=== PATIENT | male | born 1960 | race Caucasian/White ===

== ENCOUNTER 2020-09-22 08:01 | Outpatient (REF) | payer SELFPAY | END 2020-09-22 08:02 | disposition home or self-care (01) | LOC: HO.HAP 08:01 | PROVIDERS: PCP Internal Medicine; Referring Provider Internal Medicine; Visit Provider Internal Medicine | DX: Z13.89 Encounter for screening for other disorder (principal) | CPT/HCPCS: 92700 ==

== ENCOUNTER 2020-12-03 08:24 | Outpatient (REF) | payer SELFPAY | END 2020-12-03 08:25 | disposition home or self-care (01) | LOC: HO.HAP 08:24 | PROVIDERS: Visit Provider Internal Medicine | DX: Z46.1 Encounter for fitting and adjustment of hearing aid (principal); H90.3 Sensorineural hearing loss, bilateral | CPT/HCPCS: V5264 ==

== ENCOUNTER 2021-02-15 09:48 | Outpatient (REF) | payer OTHER, SELFPAY ==
--- NOTE | ~2021-02-15 | US_ITS ---
EXAMINATION: US RETROPERITONEAL LIMITED (RENAL ONLY) CLINICAL INFORMATION: Hypertension. COMPARISON: None TECHNIQUE: Real-time imaging of the kidneys. FINDINGS: RIGHT KIDNEY: 10.1 x 5.7 x 6.0 cm (SAG x AP x TRV). The kidney is normal in size, contour, and echogenicity. Renal cortical thickness is normal. Mild fullness of the renal pyramids without overt hydronephrosis. No renal calculi. LEFT KIDNEY: 10.5 x 5.6 x 5.2 cm (SAG x AP x TRV). The kidney is normal in size, contour, and echogenicity. Renal cortical thickness is normal. Mild fullness of the renal pyramids without overt hydronephrosis. No renal calculi. 1.4 cm lower pole cyst. US/US renal BI IMPRESSION: Mild fullness within the bilateral renal pyramids without overt hydronephrosis. No renal calculi appreciated. Clinical correlation recommended. Further evaluation can be obtained with ct urogram if clinically indicated.
== END 2021-02-15 09:49 | disposition home or self-care (01) ==
LOC: HO.US 09:48
PROVIDERS: PCP Internal Medicine; Visit Provider Internal Medicine Nephrology
DX: I10 Essential (primary) hypertension (principal)
CPT/HCPCS: 76775

== ENCOUNTER 2022-07-26 10:16 | Outpatient (REF) | payer OTHER, SELFPAY | END 2022-07-26 10:17 | disposition home or self-care (01) | LOC: HO.HAP 10:16 | PROVIDERS: Visit Provider Internal Medicine | DX: Z13.89 Encounter for screening for other disorder (principal) ==

== ENCOUNTER 2022-07-27 14:29 | Outpatient (REF) | payer OTHER, SELFPAY | END 2022-07-27 14:30 | disposition home or self-care (01) | LOC: HO.HAP 14:29 | PROVIDERS: Visit Provider Internal Medicine | DX: Z13.89 Encounter for screening for other disorder (principal) ==

== ENCOUNTER 2022-11-27 10:27 | Outpatient (REF) | payer OTHER, SELFPAY | END 2022-11-27 10:28 | disposition home or self-care (01) | LOC: HO.HAP 10:27 | PROVIDERS: Visit Provider Internal Medicine | DX: Z13.89 Encounter for screening for other disorder (principal) ==

== ENCOUNTER 2022-12-22 09:14 | Outpatient (REF) | payer OTHER, SELFPAY | END 2022-12-22 09:15 | disposition home or self-care (01) | LOC: HO.HAP 09:14 | PROVIDERS: Visit Provider Internal Medicine | DX: Z46.1 Encounter for fitting and adjustment of hearing aid (principal); H90.3 Sensorineural hearing loss, bilateral | CPT/HCPCS: V5266 ==

== ENCOUNTER 2023-02-13 08:54 | Outpatient (REF) | payer OTHER, SELFPAY ==
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
== END 2023-02-13 08:55 | disposition home or self-care (01) ==
LOC: HO.HAP 08:54
PROVIDERS: Visit Provider Internal Medicine
DX: Z46.1 Encounter for fitting and adjustment of hearing aid (principal); H90.3 Sensorineural hearing loss, bilateral
CPT/HCPCS: V5266

== ENCOUNTER 2023-02-27 15:54 | Outpatient (REF) | payer OTHER, SELFPAY | END 2023-02-27 15:55 | disposition home or self-care (01) | LOC: HO.HAP 15:54 | PROVIDERS: Visit Provider Internal Medicine | DX: Z13.89 Encounter for screening for other disorder (principal) ==

== ENCOUNTER 2023-04-18 11:47 | Outpatient (REF) | payer OTHER, SELFPAY | END 2023-04-18 11:48 | disposition home or self-care (01) | LOC: HO.HAP 11:47 | PROVIDERS: Visit Provider Internal Medicine | DX: Z46.1 Encounter for fitting and adjustment of hearing aid (principal); H90.3 Sensorineural hearing loss, bilateral | CPT/HCPCS: V5266 ==

== ENCOUNTER 2023-07-23 14:00 | Outpatient (REF) | payer OTHER, SELFPAY | END 2023-07-23 14:01 | disposition home or self-care (01) | LOC: HO.HAP 14:00 | PROVIDERS: Visit Provider Internal Medicine | DX: Z46.1 Encounter for fitting and adjustment of hearing aid (principal); H90.3 Sensorineural hearing loss, bilateral | CPT/HCPCS: V5266 ==

== ENCOUNTER 2023-10-15 14:13 | Outpatient (REF) | payer OTHER, SELFPAY | END 2023-10-15 14:14 | disposition home or self-care (01) | LOC: HO.HAP 14:13 | PROVIDERS: Visit Provider Internal Medicine | DX: Z46.1 Encounter for fitting and adjustment of hearing aid (principal); H90.3 Sensorineural hearing loss, bilateral | CPT/HCPCS: V5266 ==

== ENCOUNTER 2024-05-08 12:44 | Outpatient (REF) | payer SELFPAY | END 2024-05-08 12:45 | disposition home or self-care (01) | LOC: HO.HAP 12:44 | PROVIDERS: Visit Provider Internal Medicine | DX: Z13.89 Encounter for screening for other disorder (principal) ==

== ENCOUNTER 2024-05-12 16:03 | Outpatient (REF) | payer SELFPAY | END 2024-05-12 16:04 | disposition home or self-care (01) | LOC: HO.HAP 16:03 | PROVIDERS: Visit Provider Internal Medicine | DX: Z46.1 Encounter for fitting and adjustment of hearing aid (principal); H90.3 Sensorineural hearing loss, bilateral | CPT/HCPCS: 92593 ==

== ENCOUNTER 2024-05-14 16:01 | Outpatient (REF) | payer SELFPAY | END 2024-05-14 16:02 | disposition home or self-care (01) | LOC: HO.HAP 16:01 | PROVIDERS: Visit Provider Internal Medicine | DX: Z13.89 Encounter for screening for other disorder (principal) ==

== ENCOUNTER 2024-05-19 11:40 | Outpatient (REF) | payer SELFPAY | END 2024-05-19 11:41 | disposition home or self-care (01) | LOC: HO.HAP 11:40 | PROVIDERS: Visit Provider Internal Medicine | DX: Z46.1 Encounter for fitting and adjustment of hearing aid (principal); H90.3 Sensorineural hearing loss, bilateral | CPT/HCPCS: 92593 ==